=== PATIENT | female | born 1990 | race Caucasian/White ===

== ENCOUNTER 2023-02-18 23:50 | Emergency (ER) | payer MEDICAID ==
[~2023-02-18] VITALS: Ht 157.5 cm; Wt 81.6 kg
[2023-02-18 23:53] VITALS: BP 123/81; PULSE 76; RESP 15; TEMP 97.6; O2SAT 97
[2023-02-19] MEDS ORDERED: MORPHINE SULFATE 4 MG/ML SYR IM ONE
[2023-02-19] MEDS ORDERED: fentaNYL citrate 0.05 MG/ML VIAL IVP ONE (00:50)
[2023-02-19] MEDS ORDERED: PROPOFOL 200 MG/20 ML VIAL IV ONE (01:15)
[2023-02-19 01:25] VITALS: TEMP 97.6
[2023-02-19 01:45] VITALS: BP 111/75; PULSE 73; RESP 18; O2SAT 99
== END 2023-02-19 02:44 | disposition home or self-care (01) ==
LOC: MED 23:50
DX: S43.084A Other dislocation of right shoulder joint, initial encounter (principal); X58.XXXA Exposure to other specified factors, initial encounter; Y93.89 Activity, other specified; Y92.89 Other specified places as the place of occurrence of the external cause; Y99.8 Other external cause status
CPT/HCPCS: 23650; 73030; 96372; 96374; 99285; J2270; J2704; J3010; Q0092